=== PATIENT | female | born 1950 | race Caucasian/White ===

== ENCOUNTER → 2016-09-17 | Outpatient (CLI) | payer MEDICARE, OTHER ==
[~2016-09-17] VITALS: Ht 165.1 cm; Wt 106.6 kg
== END ==
LOC: OPSV 13:00
DX: D83.9 Common variable immunodeficiency, unspecified (principal)
CPT/HCPCS: 36415; 82784; 96365; 96366; J1572; J7050

== ENCOUNTER → 2016-10-08 | Outpatient (CLI) | payer MEDICARE, OTHER ==
[~2016-10-08] VITALS: Ht 165.1 cm; Wt 106.6 kg
== END ==
LOC: OPSV 12:57
DX: D83.9 Common variable immunodeficiency, unspecified (principal)
CPT/HCPCS: 96365; 96366; J1572; J7050

== ENCOUNTER → 2016-10-29 | Outpatient (CLI) | payer MEDICARE, OTHER | LOC: OPSV 12:56 | DX: D83.9 Common variable immunodeficiency, unspecified (principal) | CPT/HCPCS: 96365; 96366; J1561; J1568; J7050 ==

== ENCOUNTER → 2016-11-19 | Outpatient (CLI) | payer MEDICARE, OTHER ==
[~2016-11-19] VITALS: Ht 165.1 cm; Wt 106.6 kg
== END ==
LOC: OPSV 12:50
DX: D83.9 Common variable immunodeficiency, unspecified (principal)
CPT/HCPCS: 96365; 96366; J1561; J7050

== ENCOUNTER → 2016-12-10 | Outpatient (CLI) | payer MEDICARE, OTHER | LOC: OPSV 12:45 | DX: D83.9 Common variable immunodeficiency, unspecified (principal) | CPT/HCPCS: 96365; 96366; J1561; J7050 ==

== ENCOUNTER → 2016-12-31 | Outpatient (CLI) | payer MEDICARE, OTHER ==
[~2016-12-31] VITALS: Ht 165.1 cm; Wt 106.6 kg
== END ==
LOC: OPSV 12:47
DX: D83.9 Common variable immunodeficiency, unspecified (principal)
CPT/HCPCS: 36415; 82784; 96365; 96366; J1561; J7050

== ENCOUNTER → 2017-04-01 | Outpatient (CLI) | payer MEDICARE, OTHER ==
[~2017-04-01] VITALS: Ht 165.1 cm; Wt 106.6 kg
== END ==
LOC: OPSV 12:16
DX: D83.9 Common variable immunodeficiency, unspecified (principal)
CPT/HCPCS: 96365; 96366; J1561; J7050

== ENCOUNTER → 2020-07-26 | Outpatient (CLI) | payer MEDICARE, OTHER ==
[~2020-07-26] VITALS: Ht 165.1 cm; Wt 96.2 kg
== END ==
LOC: OPSV 08:00
DX: I49.9 Cardiac arrhythmia, unspecified (principal); D83.9 Common variable immunodeficiency, unspecified; R94.5 Abnormal results of liver function studies; I10 Essential (primary) hypertension; I47.1 Supraventricular tachycardia; Z83.3 Family history of diabetes mellitus; Z78.9 Other specified health status; Z88.0 Allergy status to penicillin; Z98.890 Other specified postprocedural states
CPT/HCPCS: 96365; 96366; J1561

== ENCOUNTER → 2020-08-16 | Outpatient (CLI) | payer MEDICARE, OTHER ==
[~2020-08-16] VITALS: Ht 165.1 cm; Wt 96.2 kg
== END ==
LOC: OPSV 08:00
DX: D83.9 Common variable immunodeficiency, unspecified (principal); I49.9 Cardiac arrhythmia, unspecified; I10 Essential (primary) hypertension; I47.1 Supraventricular tachycardia; R94.5 Abnormal results of liver function studies
CPT/HCPCS: 96365; 96366; J1561

== ENCOUNTER → 2020-09-13 | Outpatient (CLI) | payer MEDICARE, OTHER ==
[~2020-09-13] VITALS: Ht 165.1 cm; Wt 96.2 kg
== END ==
LOC: OPSV 07:48
DX: D83.9 Common variable immunodeficiency, unspecified (principal); I49.9 Cardiac arrhythmia, unspecified; R79.89 Other specified abnormal findings of blood chemistry; I10 Essential (primary) hypertension; I47.1 Supraventricular tachycardia
CPT/HCPCS: 96365; 96366; J1561

== ENCOUNTER → 2020-10-04 | Outpatient (CLI) | payer MEDICARE, OTHER ==
[~2020-10-04] VITALS: Ht 165.1 cm; Wt 96.2 kg
== END ==
LOC: OPSV 07:59
DX: I49.9 Cardiac arrhythmia, unspecified (principal); D83.9 Common variable immunodeficiency, unspecified; R79.89 Other specified abnormal findings of blood chemistry; I10 Essential (primary) hypertension; I47.1 Supraventricular tachycardia; Z83.3 Family history of diabetes mellitus; Z88.0 Allergy status to penicillin
CPT/HCPCS: 96365; 96366; J1561

== ENCOUNTER → 2020-10-25 | Outpatient (CLI) | payer MEDICARE, OTHER ==
[2020-10-26 14:14] LABS: IMMUNOGLOBULIN A, QN, SERUM <5 mg/dL (87-352); IMMUNOGLOBULIN G, QN, SERUM 942 mg/dL (586-1602); IMMUNOGLOBULIN M, QN, SERUM <5 mg/dL (26-217)
== END ==
LOC: OPSV 07:58
PROVIDERS: Internal Medicine Allergy & Immunology
DX: I49.9 Cardiac arrhythmia, unspecified (principal); D83.9 Common variable immunodeficiency, unspecified; R79.89 Other specified abnormal findings of blood chemistry; I10 Essential (primary) hypertension; I47.1 Supraventricular tachycardia; Z83.3 Family history of diabetes mellitus; Z78.9 Other specified health status
CPT/HCPCS: 82784; 96365; 96366; J1561

== ENCOUNTER → 2020-11-15 | Outpatient (CLI) | payer MEDICARE, OTHER ==
[~2020-11-15] VITALS: Ht 165.1 cm; Wt 96.2 kg
== END ==
LOC: OPSV 07:59
DX: B99.9 Unspecified infectious disease (principal); D83.9 Common variable immunodeficiency, unspecified; E11.9 Type 2 diabetes mellitus without complications; R79.89 Other specified abnormal findings of blood chemistry; I47.1 Supraventricular tachycardia; Z88.0 Allergy status to penicillin; Z79.84 Long term (current) use of oral hypoglycemic drugs; Z79.899 Other long term (current) drug therapy
CPT/HCPCS: 96365; 96366; J1561

== ENCOUNTER → 2020-12-06 | Outpatient (CLI) | payer MEDICARE, OTHER | LOC: OPSV 07:49 | DX: I49.9 Cardiac arrhythmia, unspecified (principal); D83.9 Common variable immunodeficiency, unspecified; R79.89 Other specified abnormal findings of blood chemistry; I10 Essential (primary) hypertension; I47.1 Supraventricular tachycardia; Z83.3 Family history of diabetes mellitus; Z78.9 Other specified health status | CPT/HCPCS: 96365; 96366; J1561 ==

== ENCOUNTER → 2020-12-27 | Outpatient (CLI) | payer MEDICARE, OTHER ==
[~2020-12-27] VITALS: Ht 165.1 cm; Wt 96.2 kg
== END ==
LOC: OPSV 08:00
DX: D83.9 Common variable immunodeficiency, unspecified (principal); I49.9 Cardiac arrhythmia, unspecified; R79.89 Other specified abnormal findings of blood chemistry; I10 Essential (primary) hypertension; I47.1 Supraventricular tachycardia; Z88.0 Allergy status to penicillin
CPT/HCPCS: 96365; 96366; J1561

== ENCOUNTER → 2021-01-17 | Outpatient (CLI) | payer MEDICARE, OTHER ==
[~2021-01-17] VITALS: Ht 165.1 cm; Wt 96.2 kg
== END ==
LOC: OPSV 08:00
DX: D83.9 Common variable immunodeficiency, unspecified (principal); I10 Essential (primary) hypertension; R79.89 Other specified abnormal findings of blood chemistry; I47.1 Supraventricular tachycardia; Z88.0 Allergy status to penicillin
CPT/HCPCS: 96365; 96366; J1561

== ENCOUNTER → 2021-02-07 | Outpatient (CLI) | payer MEDICARE, OTHER ==
[~2021-02-07] VITALS: Ht 165.1 cm; Wt 96.2 kg
== END ==
LOC: OPSV 07:08
DX: D83.9 Common variable immunodeficiency, unspecified (principal); I10 Essential (primary) hypertension
CPT/HCPCS: 96365; 96366; J1561

== ENCOUNTER → 2021-02-28 | Outpatient (CLI) | payer MEDICARE, OTHER ==
[~2021-02-28] VITALS: Ht 165.1 cm; Wt 96.2 kg
== END ==
LOC: OPSV 07:53
DX: D83.9 Common variable immunodeficiency, unspecified (principal); I49.9 Cardiac arrhythmia, unspecified; R79.89 Other specified abnormal findings of blood chemistry; I10 Essential (primary) hypertension; I47.1 Supraventricular tachycardia
CPT/HCPCS: 96365; 96366; J1561

== ENCOUNTER → 2021-03-21 | Outpatient (CLI) | payer MEDICARE, OTHER ==
[~2021-03-21] VITALS: Ht 165.1 cm; Wt 96.2 kg
== END ==
LOC: OPSV 07:54
DX: D83.9 Common variable immunodeficiency, unspecified (principal); I49.9 Cardiac arrhythmia, unspecified; I10 Essential (primary) hypertension; I47.1 Supraventricular tachycardia; R79.89 Other specified abnormal findings of blood chemistry; Z88.0 Allergy status to penicillin
CPT/HCPCS: 96365; 96366; J1561

== ENCOUNTER → 2021-04-11 | Outpatient (CLI) | payer MEDICARE, OTHER ==
[~2021-04-11] VITALS: Ht 165.1 cm; Wt 96.2 kg
== END ==
LOC: OPSV 08:00
DX: D83.9 Common variable immunodeficiency, unspecified (principal); I49.9 Cardiac arrhythmia, unspecified; R79.89 Other specified abnormal findings of blood chemistry; I10 Essential (primary) hypertension; I47.1 Supraventricular tachycardia
CPT/HCPCS: 96365; 96366; J1561

== ENCOUNTER → 2021-05-04 | Outpatient (CLI) | payer MEDICARE, OTHER ==
[~2021-05-04] VITALS: Ht 165.1 cm; Wt 96.2 kg
[2021-05-05 12:14] LABS: IMMUNOGLOBULIN A, QN, SERUM <5 mg/dL (87-352); IMMUNOGLOBULIN G, QN, SERUM 861 mg/dL (586-1602); IMMUNOGLOBULIN M, QN, SERUM <5 mg/dL (26-217)
== END ==
LOC: OPSV 07:47
PROVIDERS: Internal Medicine Allergy & Immunology
DX: D83.9 Common variable immunodeficiency, unspecified (principal); I49.9 Cardiac arrhythmia, unspecified; R79.89 Other specified abnormal findings of blood chemistry; I10 Essential (primary) hypertension; I47.1 Supraventricular tachycardia
CPT/HCPCS: 82784; 96365; 96366; J1561

== ENCOUNTER → 2021-06-13 | Outpatient (CLI) | payer MEDICARE, OTHER ==
[~2021-06-13] VITALS: Ht 165.1 cm; Wt 96.2 kg
== END ==
LOC: OPSV 07:57
DX: D83.9 Common variable immunodeficiency, unspecified (principal); I49.9 Cardiac arrhythmia, unspecified; R79.89 Other specified abnormal findings of blood chemistry; I10 Essential (primary) hypertension; I47.1 Supraventricular tachycardia; Z88.0 Allergy status to penicillin
CPT/HCPCS: 96365; 96366; J1561

== ENCOUNTER → 2021-07-04 | Outpatient (CLI) | payer MEDICARE, OTHER ==
[~2021-07-04] VITALS: Ht 165.1 cm; Wt 96.2 kg
== END ==
LOC: OPSV 07:55
DX: D83.9 Common variable immunodeficiency, unspecified (principal)
CPT/HCPCS: 96365; 96366; J1561

== ENCOUNTER → 2021-07-25 | Outpatient (CLI) | payer MEDICARE, OTHER ==
[~2021-07-25] VITALS: Ht 165.1 cm; Wt 96.2 kg
== END ==
LOC: OPSV 07:54
DX: D83.9 Common variable immunodeficiency, unspecified (principal)
CPT/HCPCS: 96365; 96366; J1568

== ENCOUNTER → 2021-08-17 | Outpatient (CLI) | payer MEDICARE, OTHER | LOC: OPSV 08-15 08:00 | DX: D83.9 Common variable immunodeficiency, unspecified (principal) | CPT/HCPCS: 96365; 96366; J1561 ==

== ENCOUNTER → 2021-09-07 | Outpatient (CLI) | payer MEDICARE, OTHER ==
[~2021-09-07] VITALS: Ht 165.1 cm; Wt 96.2 kg
== END ==
LOC: OPSV 08:00
DX: D83.9 Common variable immunodeficiency, unspecified (principal)
CPT/HCPCS: 96365; 96366; J1561

== ENCOUNTER → 2021-09-28 | Outpatient (CLI) | payer MEDICARE, OTHER ==
[~2021-09-28] VITALS: Ht 165.1 cm; Wt 96.2 kg
== END ==
LOC: OPSV 08:00
DX: D83.9 Common variable immunodeficiency, unspecified (principal)
CPT/HCPCS: 96365; 96366; J1561

== ENCOUNTER → 2021-10-19 | Outpatient (CLI) | payer MEDICARE, OTHER ==
[~2021-10-19] VITALS: Ht 165.1 cm; Wt 96.2 kg
== END ==
LOC: OPSV 07:53
DX: D83.9 Common variable immunodeficiency, unspecified (principal)
CPT/HCPCS: 96365; 96366; J1561

== ENCOUNTER → 2021-11-10 | Outpatient (CLI) | payer MEDICARE, OTHER | LOC: OPSV 11-09 08:00 | DX: D83.9 Common variable immunodeficiency, unspecified (principal) | CPT/HCPCS: 96365; 96366; J1561 ==

== ENCOUNTER → 2021-11-30 | Outpatient (CLI) | payer MEDICARE, OTHER ==
[~2021-11-30] VITALS: Ht 165.1 cm; Wt 96.2 kg
== END ==
LOC: OPSV 09:00
DX: D83.9 Common variable immunodeficiency, unspecified (principal)
CPT/HCPCS: 96365; 96366; J1561

== ENCOUNTER → 2021-12-21 | Outpatient (CLI) | payer MEDICARE, OTHER | LOC: OPSV 07:51 | DX: D53.9 Nutritional anemia, unspecified (principal) | CPT/HCPCS: 96365; 96366; J1561 ==

== ENCOUNTER → 2022-01-11 | Outpatient (CLI) | payer MEDICARE, OTHER ==
[~2022-01-11] VITALS: Ht 165.1 cm; Wt 96.2 kg
== END ==
LOC: OPSV 07:01
DX: D83.9 Common variable immunodeficiency, unspecified (principal)
CPT/HCPCS: 96365; 96366; J1561

== ENCOUNTER → 2022-02-01 | Outpatient (CLI) | payer MEDICARE, OTHER ==
[~2022-02-01] VITALS: Ht 165.1 cm; Wt 96.2 kg
== END ==
LOC: OPSV 07:53
DX: D83.9 Common variable immunodeficiency, unspecified (principal)
CPT/HCPCS: 96365; 96366; J1561

== ENCOUNTER → 2022-02-22 | Outpatient (CLI) | payer MEDICARE, OTHER | LOC: OPSV 07:58 | DX: D83.9 Common variable immunodeficiency, unspecified (principal) | CPT/HCPCS: 96365; 96366; J1561; J1568 ==

== ENCOUNTER → 2022-03-15 | Outpatient (CLI) | payer MEDICARE, OTHER ==
[~2022-03-15] VITALS: Ht 165.1 cm; Wt 96.2 kg
== END ==
LOC: OPSV 07:59
DX: D83.9 Common variable immunodeficiency, unspecified (principal)
CPT/HCPCS: 96365; 96366; J1561

== ENCOUNTER → 2022-04-05 | Outpatient (CLI) | payer MEDICARE, OTHER ==
[~2022-04-05] VITALS: Ht 165.1 cm; Wt 96.2 kg
== END ==
LOC: OPSV 07:52
DX: D83.9 Common variable immunodeficiency, unspecified (principal)
CPT/HCPCS: 96365; 96366; J1561